=== PATIENT | female | born 1985 | race Caucasian/White ===

== ENCOUNTER 2023-09-12 11:15 | Outpatient (RCR) | payer OTHER, MEDICAID, SELFPAY ==
--- NOTE | 2023-09-05 13:00 | PT.OPPOC ---
Physical, Occupational & Speech Therapy At [facility] Current Diagnoses Cystocele, midline (09/05/23) Rectocele (09/05/23) Visit Care Team Role Provider Type Prasanna Torres MD Primary Care Provider Physician Specialty: Family Practice Obstetrics Address: [address] [place], [address] Email: [email or web address] Providers Specialty: Address: Phone: Fax: Email: Mónica Lees PA-C Attending Provider Non-Staff Referring Provider Specialty: Medical Address: [facility] [place] [address], [id number] Email: Plan Of Care PT-OP-T Assessment and Plan Start: 08/15/23 13:22 Freq: Status: Active Protocol: Document 09/05/23 10:35 [facility] (Rec: 09/05/23 12:54 [facility] [id number]) Physical Therapy Assessment Rehab Potential Rehabilitation Potential Excellent Evaluation Complexity Number of Personal Factors/Comorbidities 0 Number of Body Systems Impaired 1-2 Clinical Presentation at Evaluation Stable Impairments Impairments Activity Tolerance,Edema, Functional Activities,Pain, Soft Tissue Mobility,Strength Other Impairments increased pelvic pressure with sitting or standing for long periods of time, after lifting heavy objects Goals 3 Impairment upper chest and neck breathing pattern with decreased mobility of the diaphragm and tightness of the oblique musculature creating downward pressure onto the pelvic organs Short Term Goal (STG) Radha is educated in diaphragmatic breathing to improve pressure systems in the abdominal wall and decrease breath hold with pelvic floor contractions STG Duration 4 weeks Air Tool Operator Goal (LTG) Radha is able to breath using her diaphragm without upper neck and chest breathing. LTG Duration 12 weeks 2 Impairment pelvic organ prolapse with fecal incontinence Custodial Goal (LTG) Radha reports a overall improvement of strength to support her pelvic organs and is no longer experiencing fecal incontinence symptoms LTG Duration 12 weeks 1 Impairment Radha lacks a home exercise program for pelvic floor strengthening prior to surgery Short Term Goal (STG) Radha is educated on a pelvic floor strengthening program for pre and post surgery to help support her pelvic organs STG Duration 4 weeks Assessment Summary Assessment Radha is a 38 year old female referred to PT for pre surgical pelvic floor strengthening. She has a surgical consult 09/18/23 for cystocele and rectocele repair . Radha has a past medical history of right sided hernia repair in March 2023. She has had the hernia since but had not had it repaired until this past March. She has had 2 vaginal deliveries and her kids are 2 and 3 years old now and she feels that since her vaginal deliveries her sensation of her ability to contract her pelvic floor is decreased. She also reports sensation that stool is moving along her colon is decreased. She has difficulty with elimination and will feel very bloated and full after eating . Sitting for periods of time in the car adds to pressure on both her abdomen as well as downwards onto her pelvic floor. She also reports that with standing for periods of time she feels a increased pressure down onto her pelvic floor. She notes she will often become nauseated with the pressure on her abdomen. Radha reports she has urinary incontinence and at times fecal incontinence. She is wearing maxi pads for protection. She reports she has urgency and waks 2-3 times at night to void. Radha was menstruating today and did not wish to have a pelvic exam until next scheduled appt. Her pelvic floor was assessed externally today. She has difficulty with pelvic floor contraction without substitution from the upper abdominal wall and lacks ability to sustain a pelvic floor contraction. With abdominal assessment there is fascial restrictions in the suprabubic fascia, right side abdominal wall along the ascending colon and most significantly the transverse colon. She presents with restrictions in diaphragmatic mobility and has difficulty with using her diaphragm to breath. This tension in her abdomen may be contributing to pelvic organ prolapse. Radha was shown a self massage today for her large intestines and we worked on diaphragmatic breathing without upper chest tightening today. She was given endurance pelvic floor holds to begin working on for home. Next visit pelvic floor strength and tone will be assessed and EMG biofeedback will be used for endurance training of the pelvic floor. Radha is a good candidate for PT Physical Therapy Plan Frequency and Duration Frequency of Treatment 1x/Week Duration of treatment (weeks) 8 Plan of Care Start Date 09/05/23 Plan of Care End Date 10/31/23 Therapeutic Interventions Therapeutic Interventions Home Exercise Program, Neuromuscular Re-education, Patient/Caregiver Education, Self-Care/Home Management, Therapeutic Exercises Modalities Biofeedback Next Visit Focus/Plan Next Note Type Treatment Note Next Visit Plan Pelvic floor assessment next visit, begin EMG biofeedback for endurance training of the pelvic floor, diaphragmatic breathing Plan of Care Dates Plan of Care Start Date 09/05/23 Plan of Care End Date 10/31/23 Electronically Signed by: Cari Blanchard, PT 09/11/23 8530 If you are in agreement with this Plan of Care, please return a signed and dated copy. I have reviewed this Plan of Care and certify that the skilled therapy services above are required to meet the patient?s needs. Physician Signature Date Printed Name and Credentials Clinical Instructor Signature Printed Name and Credentials
--- NOTE | 2023-09-05 13:00 | PT.OIE ---
Current Diagnoses Cystocele, midline (09/05/23) Rectocele (09/05/23) Visit Care Team Role Provider Type Prasanna Torres MD Primary Care Provider Physician Specialty: Family Practice Obstetrics Address: [address] [place], [address] Email: [email or web address] Other Providers Specialty: Address: Phone: Fax: Email: Mónica Lees PA-C Attending Provider Non-Staff Referring Provider Specialty: Medical Address: [address], [address] Email: Physical Therapy Initial Evaluation PT-OP-A Visit Information Start: 08/15/23 13:22 Freq: Status: Active Protocol: Document 09/05/23 10:35 [facility] (Rec: 09/05/23 11:21 [facility] [id number]) Out-Patient Physical Therapy Visit Information Visit Information Visit Type Initial Evaluation Visit Start Time 10:35 Visit Stop Time 11:15 Total Visit Minutes 40 Evaluation Information Evaluation Date 09/05/23 PT-OP-B Current Condition Start: 08/15/23 13:22 Freq: Status: Active Protocol: Document 09/05/23 10:35 [facility] (Rec: 09/05/23 11:21 [facility] [id number]) Current Condition History of Current Condition Onset Date chronic Current Complaints prolapse symptoms, pain, fecal incontinence History of Current Condition surgery consult on 09/18/[address] Benjamin rectocele repair, currently symptoms affect how she defficates, when she sits she feels she compresses her colon, standing increases symptoms and her stomache will get tender and swolen, she gets more symptoms in the abdomen, she will feel nauseated and that will give her the sign that she needs to have a bowel movement. Symptoms got worse in october of last year, she had a hernia surgery in march for inguinal repair. She is not currently working. History of a fall onto her coffee table 7 years ago and hit the right side of her SI joint. She has been a student for the last 3 years. She had the hernia since she was 8. her kids are 2 and 3, when she was a teenager she used laxitives . SHe has bowel movements multiple times per day and will give her urgency. She experiences ken leakage and feels its because if the pressure Car rides increase her pain Treatment Goals Patient/Caregiver Goals pt's goals are to decrease pressure from the pelvic organ prolapse and to improve strength of the pelvic floor muscles prior to surgery PT-OP-C Subjective Start: 08/15/23 13:22 Freq: Status: Active Protocol: Document 09/05/23 10:35 [facility] (Rec: 09/05/23 12:54 [facility] [id number]) Patient Questionnaires Pelvic Pain and Urgency/Frequency Patient Symptom Scale Pelvic Pain Score 19 OP-PT Pain Assessment Location abdominal wall Pain Location Details abdominal wall after a meal and with sitting, especially on car drives PT-OP-F Manual Assessment Start: 08/15/23 13:22 Freq: Status: Active Protocol: Document 09/05/23 10:35 [facility] (Rec: 09/05/23 12:54 [facility] [id number]) Manual Assessments Soft Tissue Assessment Soft Tissue Mobility Assessment right side ascending colon and transverse colon tightness, restriced fascial mobility, fascial tightness in the suprapubic fascia hx of right side hernia surgery March 2023 PT-OP-I Pelvic Floor Start: 08/15/23 13:22 Freq: Status: Active Protocol: Document 09/05/23 10:35 [facility] (Rec: 09/05/23 12:54 [facility] [id number]) Pelvic Floor Assessment Urine Pelvic Floor Surgery pt will be having surgery Urinary Symptoms Urge Sensation,Prolapse Other Urinary Symptoms pelvic pressure and heaviness Leakage Size Large Leakage Cause Cough,Exercise,Sneeze,Urge Leaks Per Day 3 Voiding Frequency 6-8 times per day Nocturia 2-3 Urine Pad Type Maxi Pad Bowel Bowel Surgery No Bowel Symptoms Fecal Leakage Contraction Ability Voluntary Contraction Weak Comments Pelvic Floor Comments Radha was menstruating today and preferred to wait until next visit for pelvic floor evaluation, external pelvic floor muscle strength was evaluated. Radha has difficulty facilitating a pelvic floor contraction without upper neck and chest tension and tightness at the obliques PT-OP-Q Treatments Start: 08/15/23 13:22 Freq: Status: Active Protocol: Document 09/05/23 10:35 [facility] (Rec: 09/05/23 12:54 [facility] [id number]) Therapeutic Exercises Supine Exercises pelvic floor long holds Reps/Minutes worked on 10 reps, holding x 10 seconds and relaxing x 10 seconds diaphragmatic breathing Reps/Minutes x 10 breath inhale x 4 seconds exhale x 6 seconds Comments pt tends to use upper chest to breath Self-Care/Home Management Treatment Education Patient Education Home Exercise Program Other Education Radha was educated in the ILU self massage over her colon for improved fascial mobility. She was given a handout with instructions for home PT-OP-T Assessment and Plan Start: 08/15/23 13:22 Freq: Status: Active Protocol: Document 09/05/23 10:35 [facility] (Rec: 09/05/23 12:54 [facility] [id number]) Physical Therapy Assessment Rehab Potential Rehabilitation Potential Excellent Evaluation Complexity Number of Personal Factors/Comorbidities 0 Number of Body Systems Impaired 1-2 Clinical Presentation at Evaluation Stable Impairments Impairments Activity Tolerance,Edema, Functional Activities,Pain, Soft Tissue Mobility,Strength Other Impairments increased pelvic pressure with sitting or standing for long periods of time, after lifting heavy objects Goals 3 Impairment upper chest and neck breathing pattern with decreased mobility of the diaphraghm and tightness of the oblique musculature creating downward pressure onto the pelvic organs Short Term Goal (STG) Radha is educated in diaphragmtic breathing to improve pressure systems in the abdominal wall and decrease breath hold with pelvic floor contractions STG Duration 4 weeks Channel Supervisor Goal (LTG) Radha is able to breath using her diaphraghm without upper neck and chest breathing. LTG Duration 12 weeks 2 Impairment pelvic organ prolapse with fecal incontinence Nursing Home Goal (LTG) Radha reports a overall improvement of strength to support her pelvic organs and is no longer experiencing fecal incontinence symptoms LTG Duration 12 weeks 1 Impairment Radha lacks a home exercise program for pelvic floor strengthening prior to surgery Short Term Goal (STG) Radha is educated on a pelvic floor strengthening program for pre and post surgery to help support her pelvic organs STG Duration 4 weeks Assessment Summary Assessment Radha is a 38 year old female referred to PT for pre surgical pelvic floor strengthening. She has a surgical consult 09/18/23 for cystocele and rectocele repair . Radha has a past medical history of right sided hernia repair in March 2023. She has had the hernia since but had not had it repaired until this past March. She has had 2 vaginal deliveries and her kids are 2 and 3 years old now and she feels that since her vaginal deliveries her sensation of her ability to contract her pelvic floor is decreased. She also reports sensation that stool is moving along her colon is decreased. She has difficulty with elimination and will feel very bloated and full after eating . Sitting for periods of time in the car adds to pressure on both her abdomen as well as downwards onto her pelvic floor. She also reports that with standing for periods of time she feels a increased pressure down onto her pelvic floor. She notes she will often become nauseated with the pressure on her abdomen. Radha reports she has urinary incontinence and at times fecal incontinence. She is wearing maxi pads for protection. She reports she has urgency and waks 2-3 times at night to void. Radha was menstruating today and did not wish to have a pelvic exam until next scheduled appt. Her pelvic floor was assessed externally today. She has difficulty with pelvic floor contraction without substitution from the upper abdominal wall and lacks ability to sustain a pelvic floor contraction. With abdominal assessment there is fascial restrictions in the suprabubic fascia, right side abdominal wall along the ascending colon and most significantly the trasverse colon. She presents with restrictions in diaphragmatic mobility and has difficulty with using her diaphragm to breath. This tension in her abdomen may be contributing to pelvic organ prolapse. Radha was shown a self massage today for her large intestines and we worked on diaphragmatic breathing without upper chest tightening today. She was given endurance pelvic floor holds to begin working on for home. Next visit pelvic floor strength and tone will be assessed and EMG biofeedback will be used for endurance training of the pelvic floor. Radha is a good candidate for PT Physical Therapy Plan Frequency and Duration Frequency of Treatment 1x/Week Duration of treatment (weeks) 8 Plan of Care Start Date 09/05/23 Plan of Care End Date 10/31/23 Therapeutic Interventions Therapeutic Interventions Home Exercise Program, Neuromuscular Re-education, Patient/Caregiver Education, Self-Care/Home Management, Therapeutic Exercises Modalities Biofeedback Next Visit Focus/Plan Next Note Type Treatment Note Next Visit Plan Pelvic floor assessment next visit, begin EMG biofeedback for endurance training of the pelvic floor, diaphragmatic breathing
--- NOTE | 2023-09-12 12:03 | PT.OTN ---
Current Diagnoses Cystocele, midline (09/12/23) Rectocele (09/12/23) Physical Therapy Treatment Note PT-OP-A Visit Information Start: 08/15/23 13:22 Freq: Status: Active Protocol: Document 09/12/23 11:20 [facility] (Rec: 09/12/23 12:03 [facility] [id number]) Out-Patient Physical Therapy Visit Information Visit Information Visit Type Treatment Note Visit Start Time 11:20 Visit Stop Time 12:00 Total Visit Minutes 40 Visit Number 2 PT-OP-B Current Condition Start: 08/15/23 13:22 Freq: Status: Active Protocol: Document 09/05/23 10:35 [facility] (Rec: 09/05/23 11:21 [facility] [id number]) Current Condition History of Current Condition Onset Date chronic Current Complaints prolapse symptoms, pain, fecal incontinence History of Current Condition surgery consult on 09/18/[address] Benjamin rectocele repair, currently symptoms affect how she defficates, when she sits she feels she compresses her colon, standing increases symptoms and her stomache will get tender and swolen, she gets more symptoms in the abdomen, she will feel nauseated and that will give her the sign that she needs to have a bowel movement. Symptoms got worse in october of last year, she had a hernia surgery in march for inguinal repair. She is not currently working. History of a fall onto her coffee table 7 years ago and hit the right side of her SI joint. She has been a student for the last 3 years. She had the hernia since she was 8. her kids are 2 and 3, when she was a teenager she used laxitives . SHe has bowel movements multiple times per day and will give her urgency. She experiences ken leakage and feels its because if the pressure Car rides increase her pain Treatment Goals Patient/Caregiver Goals pt's goals are to decrease pressure from the pelvic organ prolapse and to improve strength of the pelvic floor muscles prior to surgery PT-OP-C Subjective Start: 08/15/23 13:22 Freq: Status: Active Protocol: Document 09/12/23 11:20 [facility] (Rec: 09/12/23 12:03 [facility] [id number]) OP-PT Subjective Patient Comments Patient Comments pt has been able to elevate her pelvis and work on her exercises she feels like they were helpful. PT-OP-F Manual Assessment Start: 08/15/23 13:22 Freq: Status: Active Protocol: Document 09/05/23 10:35 [facility] (Rec: 09/05/23 12:54 [facility] [id number]) Manual Assessments Soft Tissue Assessment Soft Tissue Mobility Assessment right side ascending colon and transverse colon tightness, restriced fascial mobility, fascial tightness in the suprapubic fascia hx of right side hernia surgery March 2023 PT-OP-I Pelvic Floor Start: 08/15/23 13:22 Freq: Status: Active Protocol: Document 09/05/23 10:35 [facility] (Rec: 09/05/23 12:54 [facility] [id number]) Pelvic Floor Assessment Urine Pelvic Floor Surgery pt will be having surgery Urinary Symptoms Urge Sensation,Prolapse Other Urinary Symptoms pelvic pressure and heaviness Leakage Size Large Leakage Cause Cough,Exercise,Sneeze,Urge Leaks Per Day 3 Voiding Frequency 6-8 times per day Nocturia 2-3 Urine Pad Type Maxi Pad Bowel Bowel Surgery No Bowel Symptoms Fecal Leakage Contraction Ability Voluntary Contraction Weak Comments Pelvic Floor Comments Radha was menstruating today and preferred to wait until next visit for pelvic floor evaluation, external pelvic floor muscle strength was evaluated. Radha has difficulty facilitating a pelvic floor contraction without upper neck and chest tension and tightness at the obliques PT-OP-Q Treatments Start: 08/15/23 13:22 Freq: Status: Active Protocol: Document 09/12/23 11:20 [facility] (Rec: 09/12/23 12:03 [facility] [id number]) Therapeutic Exercises Supine Exercises pelvic floor long holds Reps/Minutes worked on 10 reps, holding x 10 seconds and relaxing x 10 seconds diaphragmatic breathing Reps/Minutes x 10 breath inhale x 4 seconds exhale x 6 seconds Comments Radha did better today with using her diaphragm Manual Therapy Treatment Manual Techniques manual pelvic floor assessment Comments poor endurance and difficulty with pelvic floor recruitment without gluteals and upper abdominal wall engagement, Perineal scar tissue noted and decreased ability to pull the perineum up and in Neuro Re-Education Treatment Other Activities NMES for the pelvic floor Details 10 Comments Radha was not able to feel the pelvic floor until level 21 then went to 25, she feels most of the sensation on the left side and some up towards the top but not so much on the right side. After she was on stim for 5 min she was able to turn it to 27 intensity Self-Care/Home Management Treatment Education Patient Education Home Exercise Program Other Education Radha was instructed in use of the xs dilator for perineum scar tissue massage PT-OP-T Assessment and Plan Start: 08/15/23 13:22 Freq: Status: Active Protocol: Document 09/12/23 11:20 [facility] (Rec: 09/12/23 12:03 [facility] [id number]) Physical Therapy Assessment Assessment Summary Assessment With pelvic floor exam today it is very difficult for Radha to isolate her pelvic floor. she needed many verbal cues to isolate her pelvic floor without gluteal and upper abdominal tightness. She also presents with a great deal of perineal scarring and minor gapping of th introitus. She was given a xs dilator to begin working on scar tissue release of the perineum . I also started NMES today for pelvic floor recruitment and Radha tolerated this well. Physical Therapy Plan Frequency and Duration Frequency of Treatment 1x/Week Duration of treatment (weeks) 8 Plan of Care Start Date 09/05/23 Plan of Care End Date 10/31/23 Therapeutic Interventions Therapeutic Interventions Home Exercise Program, Neuromuscular Re-education, Patient/Caregiver Education, Self-Care/Home Management, Therapeutic Exercises Modalities Biofeedback Next Visit Focus/Plan Next Note Type Treatment Note Next Visit Plan pt will see her MD for surgical consult before next visit, continue with NMES for the pelvic floor and begin EMGbiofeedback. Review ILU massage and check in with how Radha did with scar tissue massage
--- NOTE | 2023-10-09 09:23 | PT-OP ANOTE ---
Pt was called today after she NS but her mailbox was full so I was unable to leave a message for her. She will be discharged at this time due to 2 now shows and 2 cancels
--- NOTE | 2023-10-09 09:25 | PT.OPDS ---
Current Diagnoses Cystocele, midline (09/12/23) Rectocele (09/12/23) Visit Care Team Role Provider Type Prasanna Torres MD Primary Care Provider Physician Specialty: Family Practice Obstetrics Address: [address] [place], [address] Email: [email or web address] Other Providers Specialty: Address: Phone: Fax: Email: Mónica Lees PA-C Attending Provider Non-Staff Referring Provider Specialty: Medical Address: [address], [address] Email: Visit Number Visit Number 2 Discharge Summary PT-OP-B Current Condition Start: 08/15/23 13:22 Freq: Status: Active Protocol: Document 09/05/23 10:35 [facility] (Rec: 09/05/23 11:21 [facility] [id number]) Current Condition History of Current Condition Onset Date chronic Current Complaints prolapse symptoms, pain, fecal incontinence History of Current Condition surgery consult on 09/18/[address] Benjamin rectocele repair, currently symptoms affect how she defficates, when she sits she feels she compresses her colon, standing increases symptoms and her stomache will get tender and swolen, she gets more symptoms in the abdomen, she will feel nauseated and that will give her the sign that she needs to have a bowel movement. Symptoms got worse in october of last year, she had a hernia surgery in march for inguinal repair. She is not currently working. History of a fall onto her coffee table 7 years ago and hit the right side of her SI joint. She has been a student for the last 3 years. She had the hernia since she was 8. her kids are 2 and 3, when she was a teenager she used laxitives . SHe has bowel movements multiple times per day and will give her urgency. She experiences ken leakage and feels its because if the pressure Car rides increase her pain Treatment Goals Patient/Caregiver Goals pt's goals are to decrease pressure from the pelvic organ prolapse and to improve strength of the pelvic floor muscles prior to surgery PT-OP-C Subjective Start: 08/15/23 13:22 Freq: Status: Active Protocol: Document 09/12/23 11:20 [facility] (Rec: 09/12/23 12:03 [facility] [id number]) OP-PT Subjective Patient Comments Patient Comments pt has been able to elevate her pelvis and work on her exercises she feels like they were helpful. PT-OP-F Manual Assessment Start: 08/15/23 13:22 Freq: Status: Active Protocol: Document 09/05/23 10:35 [facility] (Rec: 09/05/23 12:54 [facility] [id number]) Manual Assessments Soft Tissue Assessment Soft Tissue Mobility Assessment right side ascending colon and transverse colon tightness, restriced fascial mobility, fascial tightness in the suprapubic fascia hx of right side hernia surgery March 2023 PT-OP-I Pelvic Floor Start: 08/15/23 13:22 Freq: Status: Active Protocol: Document 09/05/23 10:35 [facility] (Rec: 09/05/23 12:54 [facility] [id number]) Pelvic Floor Assessment Urine Pelvic Floor Surgery pt will be having surgery Urinary Symptoms Urge Sensation,Prolapse Other Urinary Symptoms pelvic pressure and heaviness Leakage Size Large Leakage Cause Cough,Exercise,Sneeze,Urge Leaks Per Day 3 Voiding Frequency 6-8 times per day Nocturia 2-3 Urine Pad Type Maxi Pad Bowel Bowel Surgery No Bowel Symptoms Fecal Leakage Contraction Ability Voluntary Contraction Weak Comments Pelvic Floor Comments Radha was menstruating today and preferred to wait until next visit for pelvic floor evaluation, external pelvic floor muscle strength was evaluated. Radha has difficulty facilitating a pelvic floor contraction without upper neck and chest tension and tightness at the obliques PT-OP-T Assessment and Plan Start: 08/15/23 13:22 Freq: Status: Active Protocol: Document 10/09/23 09:24 [facility] (Rec: 10/09/23 09:25 [facility] [id number]) Physical Therapy Assessment Assessment Summary Assessment Radha has not shown up for her last two scheduled visits and has also canceled visits. I have not seen her since her surgical consult. At this time I will need to discharge her due to hospital policy's with now shows. I would be happy to work with her after her surgery with a new referral Physical Therapy Plan Discharge Physical Therapy Discharge Reasons No Longer Attending PT Discharge Comments Radha has not shown up for her PT visits recently and will be discharged at this time
--- OUTSIDE RECORDS SUMMARY | 2023-10-26 14:49 | XMS_ITS | Referral Summary ---
Author Name Unknown Organization [facility] gt Address [address] [place] [address] Care Team Providers Care Skiver Box Toe Name Role Phone MeadowsThierryfionawei Bowman PMO CONSULTANT Unavailable Pcp, Outside Primary Care Provider Unavailabl e Reason for Referral * Physical/ Occ/ Speech Therapy (Routine) - In Process Specialty Diagnoses / Procedures Referred By Germania t Referred To Contact Diagnoses Cystocele, midline Rectocele Mónica Lees PA-C [address] [place] [address] [facility] [address] [place] [address] Referral ID Status Reason Start Date Expiration Date Visits Requested Visits Authorized [id number] In Process Needs Appt 06/01/2023 05/31/2024 1 1 Scheduling Instructions Referral to: Patient Preference (POS [id number]) [facility] Jana Colmenares PT, PRPC, BCB-PMD Rosalva Tucker, PT, DPT, MCMT [facility] [address] Third Floor [place], [place] Mer Silva PT, DPT [facility] [address] First Floor [place], [place] Melanie Mckeon DPT [facility] [address] [facility] 1st [place] [address] Elva Salguero PT, DPT, RYT [facility] at [facility] Martin [facility] [place] [address] [facility] [address] [place] [address] [facility] Maggi Swan, PT, DPT, [place] [address] [facility], [address] [place] [address] [facility] Nancy Gandara, DPT, WCS Cari Ontiveros DPT Rema Langston, DPT, PT Antonia Sherwood, [facility] [place] [address] [place] [address] [place] [address] GERARDO Man, DPT- [facility] [address] [facility], [facility] 100 [facility] Gisele Taylor, DPT Wanda Fernandez, DPT Gwen Carrasco, DPT Vivian Johnston, DPT [facility] [id number] [place] [address] [facility] [address] [place] [address] [facility] [address] [place] [id number] Fax: [facility] Dee Abdul PT, DPT [address] [place] [address] [place] [address] [facility] [place] [address] [place] [address] [place] [id number] PAULA Barnett PT, JENNYT Tamy Kern PT, DPT [address] [place] [id number] [facility] Physical Therapy Katarina Issary, DPT, OCS Gwen Stephane, DPT, OCS [address] [facility] [address] [place] [address] [facility] Physical Therapy [facility] Specialists [address] [place] [address] [place] [facility], [facility] [address] [facility] 101 [place] [address] [facility] [address] [facility] [place], [place] [address] [facility] [address] [facility] [address] [place] [address] [place] Lucia Diaz, PT [place] [address] [facility]. [facility] [address] [place] [address] [facility] Physical Therapy [facility] Specialists [address] , [place] [address] [place] [facility] [address] [facility] [address] [place] [address] [place] Marylin Cary DPT, [facility] [address] [facility] [address] [place] [address] [place] [facility] Ricardo Campoverde PT, DPT [address] [facility] [address] [place] [address] [facility] Yun Galindo, PT, DPT [address] [place] [address] [facility] Coreen Grijalva, PT DPT Gwen Zelaya PT, DPT, WCS, OCS [facility] Rosita Mares, DPT-[facility] [address] [place] [address] Sumi Poole, DPT-[facility] [address] [place] [address] [facility] Taya Ruiz PT, DPT Antonia Ott PT, DPT [address], [address] [place] [address] Tereza Colmenares- [facility] [place] [address], [address] [place] [address] Rashmi Mendoza- [facility] [address] [place] [address] [facility] Camelia Diggs PT, DPT Velasquez Rouse PT, DPT Muriel Amaral, PT, DPT Cathleen Rai, PT, DPT 4654 [facility] N [facility] 229? [facility] [address] ? [facility] PT [address] [place] [address] Mahamed Millerck - [facility] [address] [facility], [facility] [address] [place] [address] [facility] Tereza Estrella PT, DPT Moira Limon PT, DPT Kenna Frank PT, DPT [address] [place] [address] [place] Pieter Cunningham PT, DPT [facility] [address] [facility] [address] [place] [address] [facility] Annika Gram, DPT - [facility] [address] [facility] [place] [facility] Physical Therapy [address] [place] [address] [facility] Physical Therapy Robyn Heller, PT, DPT, OCS [address] [address] In home visits and Zoom Monse Ryan PT, DPT [facility] Fax: [phone] Please be aware that while I, as your health care provider, have identified this referral as medically indicated, I cannot guarantee your insurance plan will cover it. I recommend you contact your insurance carrier to make sure this is a covered service they will pay for. Reason for Visit * Reason Comments New Patient double wall prolapse Bladder Problems Leakage of urine Encounter Details Date Type Department Care Team Description 06/01/2023 Office Visit [facility] [address] [place] [address] Mónica Lees PA-C [address] [place] [address] Dx: Cystocele, midline (Primary Dx) Allergies Active Allergy Reactions Severity Noted Date Comments Ceftriaxone Skin: Hives,Skin: Rash Medium 2016 Hot to touch Clindamycin Skin: Rash Medium 07/28/2016 States causes heartburn; does not want to take Penicillins Skin: Hives,Skin: Rash,Angioedema/lip, tongue swelling Medium 12/11/2011 States has taken keflex in past without problems Sulfa Antibiotics Other 12/30/2018 documented as of this encounter (statuses as of 07/20/2023) Medications Medication Sig Dispensed Refills Start Date End Date Status Mavyret 100-40 MG tablet Take 3 tablets by mouth daily. 0 3 06/01/20 Discontinued(Med list cleanup) HYDROcodone-acetam inophen 5-325 MG tablet Take 1 tablet by mouth every 6 hours as needed for Pain for up to 3 days. 0 3 06/01/20 Discontinued(Med list cleanup) hydrOXYzine pamoate 25 MG capsule Take 1 capsule (25 mg) by mouth 3 times a day as needed. 0 06/01/20 Discontinued(Med list cleanup) lamoTRIgine 25 MG tablet TAKE 1 TABLET BY MOUTH EVERY DAY FOR 2 WEEKS then 2 TABLETS DAILY FOR 2 WEEKS then 4 TABLETS DAILY THEREAFTER 0 3 06/01/20 Discontinued(Med list cleanup) ondansetron [address] ONE TABLET ON TONGUE AND LET DISSOLVE EVERY 6 HOURS NEEDED FOR NAUSEA FOR UP TO 14 DAYS, MAY INCREASE TO 2 TABLETS EVERY 6 HOURS FOR SEVERE NAUSEA. 0 3 06/01/20 Discontinued(Med list cleanup) oxyCODONE 5 MG tablet Take 1 tablet (5 mg) by mouth every 4 hours as needed. 0 06/01/20 Discontinued(Med list cleanup) polyethylene glycol 3350 17 GM/SCOOP oral powder DISSOLVE 1 CAPFUL (17G) IN 8OZ OF WATER, JUICE, COFFEE, OR TEA AND DRINK BY MOUTH TWICE DAILY NEEDED FOR CONSTIPATION 0 3 06/01/20 Discontinued(Med list cleanup) multivitamin iron-folic acid 27-1 mg tablet Take 1 tablet by mouth daily. 0 06/01/20 Discontinued documented as of this encounter (statuses as of 07/20/2023) Active Problems No known active problems documented as of this encounter (statuses as of 07/20/2023) Immunizations Name Administration Dates Next Due DTP [birth year] Influenza quadrivalent MDCK (Flucelvax) 11/15/2019 Influenza quadrivalent PF 08/29/2022,05/2020,09/03/2018,09/15 Influenza trivalent PF 11/01/2017 Novel influenza [id number], all formulations 10/17/2009 Tdap 04/07/2021,04/20/2020,10/02/2019 poliomyelitis live oral vacc ine trivalent [birth year] documented as of this encounter Social History Tobacco Use Types Packs/Day Years Used Date Smoking Tobacco: Every Day Cigarettes Smokeless Tobacco: Never Tobacco Cessation:Ready to Q uit: Not Asked; Counseling Given: Not Answered Alcohol Use Standard Drinks/Week Comments Not Currently 0 (1 standard drink = 0.6 oz pur e alcohol) Sex Assigned at Date Recorded Not on file documented as of this encounter Patient Instructions * Patient Instructions* Mónica Lees PA-C - 06/01/2023 8:30 AM PDT Images from the original note were not included. Schedule appointment with [facility] Schedule consult with pelvic floor physical therapist Liliana's 1. Preform 10 Kegel's at bedtime while lying in bed 2. Preform a Kegel each time going form the sitting to standing position 3. Quick flicks while at stop lights 4. Consider meeting with a Physical Therapist if having difficulty with Kegel's. Call the clinic and request a referral when needed. Long contractions: 10 Kegel's nightly, imagine the elevator door closing and going to the second floor. Gently bring the labia together then pull up and hold for 10 seconds and then relax for 10 seconds. You should not be using your accessory muscles such as squeezing your bottom. Quick contractions: These can be done at stop lights. Squeeze release, squeeze for 2 seconds and relax for 2 seconds. You should not be using your accessory muscles such as squeezing your bottom. Preform a Kegel's when going from the sitting to standing position, with sneezing and coughing. If you have a sudden urge to void sit or stand still and preform a Kegel. After the urge has diminished, you can proceed to the bathroom. Ways to think about doing a Kegel that you may find beneficial 1.The Elevator Door: Imagine the labia is an elevator door. You will want to visualize the labia coming together and pull up allowing the elevator to go to the second or third floor. Hold for 10 seconds and relax. 2. The Jelly Fish: Visualize that you are pulling your pelvic floor up like a jelly fish swimming and then relaxing. 3. The [place]: Imagine that you are sitting on a marble (do not use a real marble). Then tighten your pelvic muscles to lift that imaginary marble off the chair. Hold for 10 seconds and then relax. Other Positional Options [email or web address] [employer] [facility] [email or web address] [facility] [email or web address] documented in this encounter Progress Notes * Mónica Lees PA-C - 06/01/2023 8:30 AM PDT Images from the original note were not included. [facility] Amb[facility] [address] [place] [address], [address] [place] [address] FAX [phone] Patient: Radha Bender : 1985 (38 year old) female Date of Visit: 06/01/2023 PCP: Pcp, Outside Referring MD: No ref. provider found CHIEF COMPLAINT: New Patient (double wall prolapse ) and Bladder Problems (Leakage of urine) SUBJECTIVE: Ms. Bender comes in today for a urological consult. Ms. Bender has concerns of rectocele. Her symptoms started after her first child 3 years ago. She did have a second child a year later and symptomsincrease. She does have difficulty with bowel movements and finds that she has to put her finger in her rectum to evacuate. I have recommended that she try placing her finger in her vagina and splinting as this may be easier for her. On exam she does have a grade III rectocele with a grade II cystocele. She is unable to do a Kegel at today's visit. I am recommending that she meet with physical therapyto help isolate her pelvic floor muscles. She will also be referred to the pelvic health center to discuss surgical treatment options for rectocele repair with possible cystocele repair. Are you experiencing Frequency: NO Urgency: NO Nocturia: NO Voids per night: 1 Urinary incontinence: YES Pads per day:2 Leak with cough, sneeze, laugh: YES Leak with urge to urinate: YES Bedwetting: NO Sense of incomplete emptying: NO Need for a double void: NO Weak Stream:NO Odor in urine: NO Cloudy in urine: NO Blood in urine: NO Microscopic: NO Gross: NO Burning with urination: NO Bladder Pain: NO Flank Pain:NO Low Back: NO Vaginal Burning: NO Vaginal Itching: NO Vaginal Discharge: NO Vaginal Irritation: NO Vaginal Dryness: NO Vaginal Odor: NO Bulge or something felt outside the vagina: YES Limiting physical activity: NO Affects quality of life: NO IBS: NO Constipation: YES Diarrhea/Soft Stools: NO Fecal Incontinence: NO Gynecologic History: Contraception: currently using None Are you sexually active: NO Obstetric history: Complications with delivery: NO Personal History: Occupation: Student and [employer] Heavy lifting: NO Pelvic Floor Surgical History: Hernia Repair Previous Urologist: None Pertinent Past Medical History: Sleep apnea: NO C-PAP NO Cardiac disease: NO On a blood thinner: NO Hypertension: NO, hypertension during History of DVT or PE: NO History of Stroke: NO Kidney Disease: NO History of Stones: NO Diabetes: NO Parkinson's: NO Multiple sclerosis: NO Asthma: NO COPD: NO Seasonal allergies requiring medication: NO Anxiety: YES ADD/ADHD: NO Obesity: NO Family or Personal History Breast Cancer: YES, personal history lumpectomy Family or Personal History Uterine Cancer: NO Family or Personal History Ovarian Cancer:NO Family or Personal History Bladder Cancer:NO Dietary irritants/Intake: Cups of Coffee Per Day: 2 Cups of Tea Per Day: 0 Soda Intake 0 Carbonated Water: 0 Juice Intake: 1 Water Intake Per Day: 8 glasses a day History of smoking:YES The Post Void Residual was done after patient voided at today's visit through portable ultrasound with the bladder scanner. Patients PVR is 1 mL's. Diagnostic work up Previous chart notes, labs and culture were reviewed today to assist in the decision making for treatment. CT: March 01, 2023 IMPRESSION: CT appearance of the liver compatible with periportal edema. This is a nonspecific finding with numerous potential etiologies. The remainder of the study is unremarkable. CONTRIBUTING CHRONIC or ACUTE ILLNESSES: History of breast cancer Prescription drug management was done at today visit: No Does patient have any social determinants of health: No OBJECTIVE: Vitals: There were no vitals taken for this visit. General: healthy, alert, and no distress Patient was able to provide their own history: YES An Independent historian or confirmatory history was used at today's visit:No : External genitalia is unremarkable in appearance without lesions, fissures, erosions, ulcers, excoriations or erythema. Urethral meatus is free of lesions and masses. Ureteral caruncle not present. Vaginal general appearance is unremarkable without discharge, lesions or masses, Vaginal atrophy is none. Lichen Sclerosis not present Hypopigmented skin changes:not present Vaginal stenosis:not present Cystocele present. Grade: II Rectocele present. Grade: II Kegel strength: 1/5 could not engage pelvic floor muscles Ordering and Independent interpretation of diagnostic test: Urinalysis Post void residual ASSESSMENT: ICD-10-CM 1. Cystocele, midline N81.11 POC Urine Dipstick, Visual Uroflowmetry Referral to Pelvic Floor Therapy 2. Rectocele N81.6 POC Urine Dipstick, Visual Uroflowmetry Referral to Pelvic Floor Therapy PLAN: Patient Instructions Schedule appointment with [facility] Schedule consult with pelvic floor physical therapist Kegel's 1. Preform 10 Kegel's at bedtime while lying in bed 2. Preform a Kegel each time going form the sitting to standing position 3. Quick flicks while at stop lights 4. Consider meeting with a Physical Therapist if having difficulty with Kegel's. Call the clinic and request a referral when needed. Long contractions: 10 Kegel's nightly, imagine the elevator door closing and going to the second floor. Gently bring the labia together then pull up and hold for 10 seconds and then relax for 10 seconds. You should not be using your accessory muscles such as squeezing your bottom. Quick contractions: These can be done at stop lights. Squeeze release, squeeze for 2 seconds and relax for 2 seconds. You should not be using your accessory muscles such as squeezing your bottom. Preform a Kegel's when going from the sitting to standing position, with sneezing and coughing. If you have a sudden urge to void sit or stand still and preform a Kegel. After the urge has diminished, you can proceed to the bathroom. Ways to think about doing a Kegel that you may find beneficial 1.The Elevator Door: Imagine the labia is an elevator door. You will want to visualize the labia coming together and pull up allowing the elevator to go to the second or third floor. Hold for 10 seconds and relax. 2. The Jelly Fish: Visualize that you are pulling your pelvic floor up like a jelly fish swimming and then relaxing. 3. The [place]: Imagine that you are sitting on a marble (do not use a real marble). Then tighten your pelvic muscles to lift that imaginary marble off the chair. Hold for 10 seconds and then relax. Other Positional Options [email or web address] [employer] [facility] [email or web address]/ [facility] [email or web address]/community/ Patient should call the clinic if symptoms persist or increase. I spent a total of 40 minutes for the patient's care on the date of the service. Mónica Lees PA-C documented in this encounter Plan of Treatment Upcoming Encounters Date Type Specialty Care Team Description 09/18/2023 Office Visit Urogynecology Marcela Benjamin MD [address] [facility] [id number] [place] [address] Scheduled Referrals Name Type Priority Associated Diagnoses Orde r Schedule Referral to Pelvic Floor Therapy Referral Routine Cystocele, midline Rectocele Expected: 06/01/2023, Expires: 06/01/2024 documented as of this encounter Procedures Procedure Name Priority Date/Time Associated Diagnosis Comments U/A NONAUTO DIPSTICK ONLY, ONSITE Routine 06/01/2023 Cystocele, midline Rectocele UROFLOWMETRY Routine 06/01/2023 Cystocele, midline Rectocele documented in this encounter Results * Uroflowmetry (06/01/2023) Urine Volume 01 mL OUTSIDE REFERENCE PERFORMING LAB Comment:PVR via BS 06/01/2023 Mónica Lees PA-C PROCEDURE ORD ERABLES OUTSIDE REFERENCE PERFORMING LAB OUTSIDE REFERENCE PERFORMING LAB (See Results) * (ABNORMAL) POC Urine Dipstick, Visual (06/01/2023) Color, URN yellow [facility]FORM[facility] Clarity, URN clear [facility]FORMING [facility] Glucose, Urine neg NEG mg/dL OUTSI DE REFERENCE PERFORMING LAB Bilirubin (Indirect) neg NEG [facility]FORM[facility] Ketones, URN neg NEG mg/dL OUTSIDE REFERENCE PERFORMING LAB Specific [place], URN 1.000(A) 1.005 - 1.030 OUT[facility]IDE REFER[facility]FORMING [facility] Occult Blood, URN neg NEG OUTSIDE REFERENCE PERFORMING [facility] pH, URN (UWNC) 5.5 5.0 - 8.0 OUTSI DE REFERENCE PERFORMING LAB Protein neg NEG-TRACE mg/dL OUTSIDE REFERENCE PERFORMING LAB Urobilinogen, URN 0.2 0.2 - 1.0 E.U./dL OUTSIDE REFERENCE PERFORMING LAB Nitrite, URN neg NEG [facility]SIDE REFERENCE PERFORMING LAB Leukocytes neg NEG OUTSIDE REFERENCE PERFORMING LAB 06/01/2023 Mónica Lees PA-C LAB POINT OF CAR E TEST ENTER EDIT ORDERABLES OUTSIDE REFERENCE PERFORMING LAB OUTSIDE REFERENCE PERFORMING LAB (See Results) documented in this encounter Visit Diagnoses Diagnosis Cystocele, midline- Primary Rectocele documented in this encounter Additional Health Concerns Infection Onset Date Last Indicated Resolved Time 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
== END 2023-10-15 10:59 | disposition home or self-care (01) ==
LOC: PHYS 11:15
PROVIDERS: PCP Family Medicine; Referring Provider Physician Assistant Surgical; Visit Provider Physician Assistant Surgical
DX: N81.11 Cystocele, midline (principal); N81.6 Rectocele
CPT/HCPCS: 97110; 97112; 97140; 97161

== ENCOUNTER 2023-09-17 09:50 | Emergency (ER) | payer OTHER, MEDICAID, SELFPAY ==
[2023-09-17 09:53] VITALS: BP 131/83; PULSE 99; RESP 18; TEMP 36.9; O2SAT 98; BMI 21.9
--- NOTE | 2023-09-17 09:57 | DI.RAD.S_ITS ---
PROCEDURE: XR TOE RT MIN 2V INDICATIONS: thinks broke toe TECHNIQUE: 3 views of the 5th toe(s) acquired. COMPARISON: None. FINDINGS: Bones: There is a minimally displaced fracture at the distal aspect of the 5th proximal phalanx. There is no intra-articular extension. Soft tissues: No suspicious soft tissue densities. IMPRESSION: 5th proximal phalanx fracture with minimal displacement. Dictated by: Shakira Serrano M.D. on 09/17/2023 at 10:48 Approved by: Shakira Serrano M.D. on 09/17/2023 at 10:50
[2023-09-17 10:30] VITALS: PULSE 80
--- NOTE | 2023-09-17 10:56 | ED.LOWEXIN ---
HPI - Extremity Injury (Lower) General Chief Complaint: Extremity Injury, Lower Stated Complaint: thinks broken R/ pinkie toe Time Seen by Provider: 09/17/23 09:55 Source: patient Mode of arrival: Ambulatory History of Present Illness HPI Narrative: 38yoF presents for possible broken toe. Patient smashed her toe against a nightstand in the middle of the night. Pinkie toe is red, swollen, painful. Related Data Allergies Allergy/AdvReac Type Severity Reaction Status Date / Time amoxicillin [AMOXICILLIN] Allergy Unknown Unverified 03/06/18 12:36 ceftriaxone [From ROCEPHIN] Allergy Unknown Unverified 03/06/18 12:36 Penicillins [PENICILLINS] Allergy Unknown Unverified 03/06/18 12:36 Review of Systems Review of Systems Narrative: Negative except as noted above Patient History Social History Smoking Status: Current every day smoker Smoking Status: Current every day smoker tobacco type: cigarettes alcohol intake frequency: other Substance Use Type: does not use Exam Initial Vital Signs Initial Vital Signs: Vital Signs Temperature 98.5 F 09/17/23 09:53 Pulse Rate 99 H 09/17/23 09:53 Respiratory Rate 18 09/17/23 09:53 Blood Pressure 131/83 09/17/23 09:53 Pulse Oximetry 98 09/17/23 09:53 Oxygen Delivery Method Room Air 09/17/23 09:53 Const: Awake, alert, no acute distress, nontoxic appearing Eyes: PERRL, EOMI, conjunctiva normal ENT: Atraumatic, dentition normal, mucous membranes moist Cardiac: regular rate, regular rhythm RESP: unlabored, clear bilaterally, no wheezing GI: Atraumatic, soft, nontender, nondistended, no rebound, no guarding MSK: bruising, swelling R pinkie toe Skin: Warm, Dry, intact, bruising R pinkie toe Neuro: AO x3, CN II-XII grossly intact, moves all extremities Psych: affect normal, mood normal, not suicidal, not homicidal Course Course Course Narrative: Nondisplaced pinkie toe fracture. BARNEY advised. Placed in ortho shoe for comfort. Patient offered referral to podiatry, she declined stating she would f/u wt PCP Orders Ordered: ED Orders 09/17/23 09:57 XR toe RT min 2V Stat Vital Signs Vital signs: Vital Signs - 8 hr 09/17/23 09:53 Temperature 98.5 F Pulse Rate 99 H Respiratory Rate 18 Blood Pressure 131/83 Pulse Oximetry 98 Oxygen Delivery Method Room Air Discharge Plan Departure Patient Disposition: Home Clinical Impression: Fracture of toe Qualifiers: Encounter type: initial encounter Toe: lesser toe Fracture type: closed Phalanx: proximal Fracture alignment: nondisplaced Instructions: DI for Toe Fracture Referrals: Prasanna Torres MD [Primary Care Provider] - Stand Alone Forms: Patient Portal/API
== END 2023-09-17 11:10 | disposition home or self-care (01) ==
PROVIDERS: Emergency Provider Emergency Medicine; PCP Family Medicine
DX: S92.514A Nondisplaced fracture of proximal phalanx of right lesser toe(s), initial encounter for closed fracture (principal); W22.03XA Walked into furniture, initial encounter
CPT/HCPCS: 73660; 99283

== ENCOUNTER 2023-12-25 09:49 | Day surgery (SDC) | payer OTHER, MEDICAID, SELFPAY ==
[2023-12-25 10:20] VITALS: BP 141/96; PULSE 97; RESP 18; TEMP 36.8; O2SAT 98
[2023-12-25] MEDS: LACTATED RINGERS 1,000 ML 42 ML IV (10:37)
--- NOTE | 2023-12-25 10:45 | PM.HP.1 ---
History of Present Illness History of Present Illness Date Patient Seen: 12/25/23 Time Patient Seen: 10:45 Chief complaint: Colonoscopy Narrative: 38-year-old woman here for screening colonoscopy. No previous colonoscopy. No family history of intestinal malignancies. She has a history of breast cancer status post bilateral mastectomy with reconstruction. She has a known cystocele and rectocele with plans for surgical repair later this year at the [facility]. [facility] Medical History PTSD (post-traumatic stress disorder) (~2020) Depression Bulimia (~2005) History of bipolar disorder (~2003) Anxiety (~1999) Anorexia nervosa (~1999) Breast cancer (~2015) Mood disorder Hepatitis C Bursitis of left shoulder Family History Brother Bone cancer Social History Smoking Status: Current every day smoker alcohol intake: never Meds Home Medications and Allergies Home Medications Medication Instructions Recorded Confirmed Type hydroxyzine HCl 50 mg tablet 50 mg PO BID PRN anxiety #60 tabs 10/31/23 12/25/23 Rx lamotrigine 100 mg tablet 100 mg PO DAILY 30 days #30 tabs 11/16/23 12/25/23 Rx Allergies Allergy/AdvReac Type Severity Reaction Status Date / Time amoxicillin [AMOXICILLIN] Allergy Unknown Verified 12/25/23 10:37 ceftriaxone [From ROCEPHIN] Allergy Unknown Verified 12/25/23 10:37 Penicillins [PENICILLINS] Allergy Unknown Verified 12/25/23 10:37 Exam Vital Signs (past 8 hours): - 12/25/23 10:20 Temperature 98.2 F Pulse Rate 97 H Respiratory Rate 18 Blood Pressure 141/96 H Pulse Oximetry 98 Oxygen Delivery Method Room Air Oxygen Delivery Method Room Air Narrative Exam Narrative: General adult woman alert oriented no acute distress Chest nonlabored respiration Extremities warm well perfused Assessment & Plan Assessment & Plan narrative: The patient requires colorectal screening and colonoscopy is recommended. Technical details were discussed. Risks, benefits, alternatives explained. Risks including but not limited to myocardial infarction, aspiration, bleeding, pain, missed lesion, incomplete examination, need for further radiographic studies, colonic perforation, and need for major abdominal surgery were discussed. All questions were answered to their satisfaction, and they are in agreement with this plan.
[2023-12-25 11:15] VITALS: BP 107/73; PULSE 93; RESP 18; TEMP 37.1; O2SAT 97
[2023-12-25 11:19] VITALS: BP 108/78; PULSE 89; RESP 19; TEMP 37.1; O2SAT 98
--- NOTE | 2023-12-25 11:23 | P.OP.COLON_ITS ---
Operative Date/Time/Diagnoses Date of procedure: 12/25/23 Time of procedure: 11:23 Pre-op diagnosis: Colorectal screening Procedure & Clinicians Study performed: Colonoscopy Same procedure as scheduled: Yes Indications: Colorectal screening Surgeon: Leo Gasca Procedure Notes Procedure in detail: The history and physical was performed/updated and the patient is ASA class is 2. The procedure was discussed in detail with the patient. Potential risks complications including infection, bleeding, missed diagnosis, perforation, need for surgery, and were explained. Their questions were answered and informed consent was obtained. Patient was brought to the procedure room and placed standard monitoring equipment. The patient's vital signs were monitored continuously throughout the entire procedure. Prior to starting time-out was performed. The patient was placed in the left lateral recumbent position. Procedural sedation was administered by anesthesia. Examination began with a thorough inspection of the perianal area there was no evidence of fissures, fistulae, external hemorrhoids or cutaneous malignancy. The colonoscopy scope was then placed into the anal canal and was advanced to the cecum, which was identified by the ileocecal valve , the appendiceal orifice and the confluence of the taenia. The scope was then slowly withdrawn examining colon thoroughly in all directions, irrigating it of any residual stool. The scope was retroflexed within the rectum The patient tolerated the procedure well. They will be discharged once criteria are met. The prep was of good/excellent quality. The withdrawl time was 7 minutes. FINDINGS * Unremarkable colonoscopy. No masses, polyps or inflammation. Specimen(s): none sent Impression: Normal colonoscopy Post-procedure Recommendations: Colonoscopy in 10 years and High fiber diet Disposition: same day surgery
[2023-12-25 11:24] VITALS: PULSE 94; RESP 21; TEMP 36.9; O2SAT 98
[2023-12-25 11:30] VITALS: BP 132/87; PULSE 87; RESP 17; O2SAT 99
== END 2023-12-25 11:42 | disposition home or self-care (01) ==
PROVIDERS: PCP Family Medicine; Referring Provider Surgery; Visit Provider Surgery
PROC: 0DJD8ZZ Inspection of Lower Intestinal Tract, Via Natural or Artificial Opening Endoscopic (ICD-10-PCS; CPT 45378; principal; 2023-12-25 10:45)
DX: Z12.11 Encounter for screening for malignant neoplasm of colon (principal); N81.6 Rectocele; Z85.3 Personal history of malignant neoplasm of breast
CPT/HCPCS: 45378; J2250; J2704

== ENCOUNTER → 2025-02-17 08:29 | Outpatient (CLI) | payer OTHER, SELFPAY ==
--- NOTE | 2025-02-17 08:31 | DI.RAD.S_ITS ---
PROCEDURE: XR KNEE RT 3V INDICATIONS: Anterior/patellar knee pain with weight-bearing/push-off TECHNIQUE: 3 views of the knee were acquired. COMPARISON: None. FINDINGS: Bones: No fractures or dislocations. No suspicious bony lesions. Soft tissues: No joint effusion. No suspicious soft tissue calcifications. IMPRESSION: No acute bony abnormality or significant effusion. Dictated by: Trav Bloom M.D. on 02/18/2025 at 3:27 Approved by: Trav Bloom M.D. on 02/18/2025 at 3:28
[2025-02-17 09:19] LABS: Add Manual Diff / Slide Review NO; Basophils Absolute Auto 0 /uL (0-100); Basophils Percent Auto 0.7 % (0-2); Eosinophils Absolute Auto 200 /uL (0-450); Eosinophils Percent Auto 2.8 % (2-4); Hematocrit 42.1 % (36-46); Hemoglobin 14.2 g/dL (12.0-16.0); Lymphocytes Absolute Auto 1800 /uL (1100-4500); Lymphocytes Percent Auto 33.2 % (25-40); Mean Corpuscular HGB Conc 33.7 % (30-36); Mean Corpuscular Volume 86.1 fL (80-100); Monocytes Absolute Auto 400 /uL (0-900); Monocytes Percent Auto 7.9 % (3-14); Neutrophils Absolute Auto 3000 /uL (1500-7000); Neutrophils Percent Auto 55.4 % (50-75); Platelet Count 250 X10^3/uL (150-400); Red Blood Cell Count 4.89 X10^6/uL (4.0-5.2); Red Cell Distribution Width 15.1 % (11.6-14.8); White Blood Cell Count 5.4 X10^3/uL (4.5-11.0)
[2025-02-17 09:32] LABS: Prothrombin Time 10.8 SECONDS (9.4-12.5)
[2025-02-17 09:41] LABS: HEMOLYSIS < 15 (0-50); Iron 57 ug/dL (37-170)
[2025-02-17 09:45] LABS: Alanine Aminotransferase 14 IU/L (<35); Albumin 4.5 g/dL (3.5-5.0); Albumin Globulin Ratio 1.6 (1.0-2.8); Alkaline Phosphatase 73 U/L (38-126); Aspartate Aminotransferase 24 IU/L (14-36); BUN Creatinine Ratio 15.4 (6-22); Bilirubin Total 0.6 mg/dL (0.2-1.3); Blood Urea Nitrogen 10 mg/dL (7-17); Calcium 9.7 mg/dL (8.4-10.2); Carbon Dioxide 22 mmol/L (22-32); Chloride 105 mmol/L (98-107); Estimated Glomerular Filt Rate > 60 mL/min (>60); Globulin 2.9 g/dL (1.7-4.1); Glucose 76 mg/dL (70-100); HEMOLYSIS < 15 (0-50); Potassium 4.4 mmol/L (3.4-5.1); Sodium 136 mmol/L (137-145); Total Protein 7.4 g/dL (6.3-8.2)
[2025-02-17 09:54] LABS: Percent Iron Saturation 19 % (15-50); Total Iron Binding Capacity 296 ug/dL (265-497); Transferrin 248 mg/dL (206-381)
[2025-02-17 10:14] LABS: TSH w/ Reflex to FT4 1.11 uIU/mL (0.47-4.68)
[2025-02-17 10:16] LABS: Ferritin 12 ng/mL (6-137)
[2025-02-17 10:30] LABS: Vitamin B12 Reflex MMA if <400 475 pg/mL (239-931)
[2025-02-17 14:47] LABS: Hepatitis B Surface Antigen NEGATIVE s/c (NEGATIVE)
[2025-02-17 14:57] LABS: HIV 1 & 2 Ab/Ag 4th Gen Combo NEGATIVE (NEGATIVE)
[2025-02-18 07:09] LABS: Hepatitis B Core IgM Negative (Negative); Hepatitis B Surf Ab Qualitativ Reactive (.)
== END ==
PROVIDERS: PCP Family Medicine; Referring Provider Family Medicine; Visit Provider Family Medicine
DX: M25.561 Pain in right knee (principal); G89.29 Other chronic pain; B19.20 Unspecified viral hepatitis C without hepatic coma; Z78.9 Other specified health status; Z13.9 Encounter for screening, unspecified; R20.0 Anesthesia of skin; R20.2 Paresthesia of skin
CPT/HCPCS: 36415; 73562; 80053; 82607; 82728; 83540; 83550; 84443; 85025; 85610; 86705; 86706; 87340; 87389; 87522